=== PATIENT | female | born 2000 | race Caucasian/White ===

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

== ENCOUNTER 2018-07-04 16:20 | Emergency (ER) | payer SELFPAY ==
[2018-07-04] MEDS ORDERED: Sodium Chloride 0.9% 1,000 ML IV ONE ×2 (16:45→18:02)
[2018-07-04] MEDS ORDERED: Ondansetron 4 MG/2 ML SDV IVPUSH ONE (16:45)
--- NOTE | 2018-07-04 16:54 | EDM.PDOC ---
ED HPI GENERAL MEDICAL PROBLEM - General Chief Complaint: Gastrointestinal Problem Stated Complaint: FLU SYMPTOMS Time Seen by Provider: 07/04/18 16:49 Source of Information: Reports: Patient History Limitations: Reports: No Limitations - History of Present Illness INITIAL COMMENTS - FREE TEXT/NARRATIVE: With vomiting since 0200. Last vomited prior to arrival. With diarrhea today also. With abdominal pain. No sick contacts. Ate goldfish crackers prior to going to bed. With chills. Onset: Sudden Onset Date: 07/04/18 Onset Time: 02:00 Duration: Intermittent Location: Reports: Abdomen Severity: Moderate Improves with: Reports: None Worsens with: Reports: None Associated Symptoms: Reports: Fever/Chills, Nausea/Vomiting, Other (diarrhea) Middle Abdomen Pain Score (Numeric/FACES): 6 - Related Data Allergies Allergy/AdvReac Type Severity Reaction Status Date / Time nickel Allergy Rash Verified 06/27/16 19:51 shellfish derived Allergy Anaphylactic Verified 06/27/16 19:51 Shock tree nut Allergy Anaphylactic Verified 06/27/16 19:51 Shock Home Meds: Home Meds NK [No Known Home Meds] 06/27/16 [History] Past Medical History - Past Health History Medical/Surgical History: Denies Medical/Surgical History HEENT History: Reports: Impaired Vision Psychiatric History: Reports: Anxiety Dermatologic History: Reports: Eczema - Past Surgical History HEENT Surgical History: Reports: Other (See Below) Social & Family History - Tobacco Use Smoking Status *Q: Never Smoker - Caffeine Use Caffeine Use: Reports: None - Recreational Drug Use Recreational Drug Use: No ED ROS GENERAL - Review of Systems Review Of Systems: See Below Constitutional: Reports: Fever, Chills, Malaise, Weakness, Decreased Appetite HEENT: Reports: No Symptoms Respiratory: Reports: No Symptoms Cardiovascular: Reports: No Symptoms GI/Abdominal: Reports: Abdominal Pain, Diarrhea, Nausea, Vomiting : Reports: No Symptoms Musculoskeletal: Reports: No Symptoms Skin: Reports: No Symptoms Neurological: Reports: No Symptoms Psychiatric: Reports: No Symptoms Hematologic/Lymphatic: Reports: No Symptoms Immunologic: Reports: No Symptoms ED EXAM, GI/ABD - Physical Exam Exam: See Below Exam Limited By: No Limitations General Appearance: Alert, WD/WN, No Apparent Distress Ears: Normal External Exam, Normal Canal, Hearing Grossly Normal, Normal TMs Nose: Normal Inspection, Normal Mucosa, No Blood Throat/Mouth: Normal Inspection, Normal Lips, Normal Teeth, Normal Gums, Normal Oropharynx, Normal Voice, No Airway Compromise, Other (dry lips) Head: Atraumatic, Normocephalic Neck: Normal Inspection, Supple, Non-Tender, Full Range of Motion Respiratory/Chest: No Respiratory Distress, Lungs Clear, Normal Breath Sounds, No Accessory Muscle Use, Chest Non-Tender Cardiovascular: Normal Peripheral Pulses, Regular Rate, Rhythm, No Edema, No Gallop, No JVD, No Murmur, No Rub GI/Abdominal Exam: Normal Bowel Sounds, Tender (right lower quadrant brings her to tears) Extremities: Normal Inspection, Normal Range of Motion, Non-Tender, Normal Capillary Refill, No Pedal Edema Neurological: Alert, Oriented, CN II-XII Intact, Normal Cognition, Normal Gait, Normal Reflexes, No Motor/Sensory Deficits Psychiatric: Normal Affect, Normal Mood Skin Exam: Warm, Dry, Intact, Normal Color, No Rash Course - Vital Signs Last Recorded V/S: Last Vital Signs Temp 99 F 07/04/18 16:39 Pulse 112 H 07/04/18 17:51 Resp 18 07/04/18 17:51 BP 120/70 07/04/18 17:51 Pulse Ox 95 07/04/18 17:51 - Orders/Labs/Meds Orders: Active Orders 24 hr Category Date Time Status Abdomen Pelvis w Cont [CT] Stat Exams 07/04/18 18:14 Taken HCG QUALITATIVE,URINE [URCHEM] Stat Lab 07/04/18 17:33 Ordered Iopamidol [Isovue-300 (61%)] Med 07/04/18 18:30 Active 100 ml IV . DIRECTED Sodium Chloride 0.9% [Normal Saline] 100 ml Med 07/04/18 18:30 Active IV ASDIRECTED Medication Orders Sodium Chloride (Normal Saline) 100 mls @ 3 mls/sec IV ASDIRECTED SUSHANT Last Admin: 07/04/18 18:35 Dose: 3 mls/sec Iopamidol (Isovue-300 (61%)) 100 ml IV . DIRECTED SUSHANT Last Admin: 07/04/18 18:35 Dose: 100 ml Labs: Laboratory Tests 07/04/18 07/04/18 07/04/18 Range/Units 16:58 16:58 17:25 WBC 18.4 H (4.5-11.0) K/uL RBC 5.52 H (3.30-5.50) M/uL Hgb 16.8 H (12.0-15.0) g/dL Hct 49.4 H (36.0-48.0) % MCV 90 (80-98) fL MCH 30 (27-31) pg MCHC 34 (32-36) % Plt Count 228 (150-400) K/uL Neut % (Auto) 93 H (36-66) % Lymph % (Auto) 3 L (24-44) % [place] % (Auto) 4 (2-6) % Eos % (Auto) 0 L (2-4) % Baso % (Auto) 0 (0-1) % Sodium 140 (140-148) mmol/L Potassium 3.8 (3.6-5.2) mmol/L Chloride 109 H (100-108) mmol/L Carbon Dioxide 19 L (21-32) mmol/L Anion Gap 15.8 H (5.0-14.0) mmol/L BUN 14 (7-18) mg/dL Creatinine 0.8 (0.6-1.0) mg/dL Est Cr Clr Drug Dosing 96.86 mL/min Estimated GFR (MDRD) > 60 (>60) Glucose 117 H (74-106) mg/dL Lactic Acid 1.6 (0.4-2.0) mmol/L Calcium 8.4 L (8.5-10.1) mg/dL Total Bilirubin 0.5 (0.2-1.0) mg/dL AST 19 (15-37) U/L ALT 21 (12-78) U/L Alkaline Phosphatase 81 (46-116) U/L Total Protein 6.6 (6.4-8.2) g/dL Albumin 3.7 (3.4-5.0) g/dL Globulin 2.9 (2.3-3.5) g/dL Albumin/Globulin Ratio 1.3 (1.2-2.2) Urine HCG, Qual 07/04/18 Range/Units 17:33 WBC (4.5-11.0) K/uL RBC (3.30-5.50) M/uL Hgb (12.0-15.0) g/dL Hct (36.0-48.0) % MCV (80-98) fL MCH (27-31) pg MCHC (32-36) % Plt Count (150-400) K/uL Neut % (Auto) (36-66) % Lymph % (Auto) (24-44) % [place] % (Auto) (2-6) % Eos % (Auto) (2-4) % Baso % (Auto) (0-1) % Sodium (140-148) mmol/L Potassium (3.6-5.2) mmol/L Chloride (100-108) mmol/L Carbon Dioxide (21-32) mmol/L Anion Gap (5.0-14.0) mmol/L BUN (7-18) mg/dL Creatinine (0.6-1.0) mg/dL Est Cr Clr Drug Dosing mL/min Estimated GFR (MDRD) (>60) Glucose (74-106) mg/dL Lactic Acid (0.4-2.0) mmol/L Calcium (8.5-10.1) mg/dL Total Bilirubin (0.2-1.0) mg/dL AST (15-37) U/L ALT (12-78) U/L Alkaline Phosphatase (46-116) U/L Total Protein (6.4-8.2) g/dL Albumin (3.4-5.0) g/dL Globulin (2.3-3.5) g/dL Albumin/Globulin Ratio (1.2-2.2) Urine HCG, Qual Negative Meds: Medications Generic Name Dose Route Start Last Admin Trade Name Freq PRN Reason Stop Dose Admin Sodium Chloride 100 mls @ 3 mls/sec 07/04/18 18:30 07/04/18 18:35 Normal Saline IV 3 mls/sec ASDIRECTED SUSHANT Administration Iopamidol 100 ml 07/04/18 18:30 07/04/18 18:35 Isovue-300 (61%) IV 100 ml . DIRECTED SUSHANT Administration Discontinued Medications Generic Name Dose Route Start Last Admin Trade Name Freq PRN Reason Stop Dose Admin Sodium Chloride 1,000 mls @ 999 mls/min 07/04/18 16:45 07/04/18 17:07 Normal Saline IV 07/04/18 16:46 999 mls/min .BOLUS ONE Administration Sodium Chloride 1,000 mls @ 999 mls/min 07/04/18 18:02 07/04/18 18:12 Normal Saline IV 07/04/18 18:03 999 mls/min .BOLUS ONE Administration Ketorolac Tromethamine 30 mg 07/04/18 17:27 07/04/18 17:30 Toradol IVPUSH 07/04/18 17:28 30 mg ONETIME ONE Administration Ondansetron HCl 4 mg 07/04/18 16:45 07/04/18 17:07 Zofran IVPUSH 07/04/18 16:46 4 mg ONETIME ONE Administration Departure - Departure Time of Disposition: 19:39 Disposition: Home, Self-Care 01 Condition: Fair Clinical Impression: Gastroenteritis - Discharge Information *PRESCRIPTION DRUG MONITORING PROGRAM REVIEWED*: Not Applicable *COPY OF PRESCRIPTION DRUG MONITORING REPORT IN PATIENT EDUARDO: Not Applicable Instructions: Viral Gastroenteritis, Adult, [id number], Diarrhea, Adult, Easy -to-Read Referrals: PCP,None [Primary Care Provider] - Forms: ED Department Discharge Additional Instructions: Labs show elevated WBC. Normal lactic acid. Liver and kidney function normal. CT of abdomen and pelvis negative. IV NS 2L infused. Pt given Zofran and has no further vomiting. Toradol IV given for pain. Pt to be discharged and sent home to collect stool sample as an outpatient to rule out bacterial cause of diarrhea. Order written. To advance diet slowly. Increase fluids. Followup if symptoms worsen or concerns about dehydration. - Problem List & Annotations (1) Gastroenteritis SNOMED Code(s): 38152049 Code(s): K52.9 - NONINFECTIVE GASTROENTERITIS AND COLITIS, UNSPECIFIED Status: Acute Priority: Medium Current Visit: Yes - My Orders Last 24 Hours: My Active Orders 07/04/18 17:33 HCG QUALITATIVE,URINE [URCHEM] Stat 07/04/18 18:14 Abdomen Pelvis w Cont [CT] Stat 07/04/18 18:30 Iopamidol [Isovue-300 (61%)] 100 ml IV . DIRECTED Sodium Chloride 0.9% [Normal Saline] 100 ml IV ASDIRECTED - Assessment/Plan Last 24 Hours: My Active Orders 07/04/18 17:33 HCG QUALITATIVE,URINE [URCHEM] Stat 07/04/18 18:14 Abdomen Pelvis w Cont [CT] Stat 07/04/18 18:30 Iopamidol [Isovue-300 (61%)] 100 ml IV . DIRECTED Sodium Chloride 0.9% [Normal Saline] 100 ml IV ASDIRECTED
[2018-07-04] MEDS ORDERED: Ketorolac 30 MG/ML SDV IVPUSH ONE (17:27)
[2018-07-04 17:52] VITALS: BP 120/70
[2018-07-04] MEDS ORDERED: Sodium Chloride 0.9% 100 ML IV SCH (18:30)
[2018-07-04] MEDS ORDERED: Iopamidol 612 MG/ML 100 ML Bottle IV SCH (18:30)
== END 2018-07-04 20:00 | disposition home or self-care (01) ==
LOC: JP.ED 16:20
DX: K21.9 Gastro-esophageal reflux disease without esophagitis (principal); Z88.8 Allergy status to other drugs, medicaments and biological substances; Z91.013 Allergy to seafood
CPT/HCPCS: 36415; 74177; 80053; 81025; 83605; 85025; 96361; 96374; 96375; 99284; J1885; J2405; J7030; Q9967